=== PATIENT | male | born 1985 | race Caucasian/White ===

== ENCOUNTER 2019-05-18 04:58 | Emergency (ER) | payer SELFPAY ==
[~2019-05-18] VITALS: Ht 185.4 cm; Wt 111.1 kg
[2019-05-18 05:08] VITALS: BP 163/89
[2019-05-18] MEDS ORDERED: IBUPROFEN 600 MG TAB PO ONE (05:15)
--- NOTE | 2019-05-18 05:16 | NUR ---
PATIENT BROUGHT IN BY TWO FEMALE FRIENDS. POSITIONED FOR COMFORT IN BED. PLACED IN GOWN. AAO. VSS.
--- NOTE | 2019-05-18 05:17 | NUR ---
DR ANGEL AT BEDSIDE.
--- NOTE | 2019-05-18 05:35 | NUR ---
PATIENT TAKEN TO CT IN WHEELCHAIR.
--- NOTE | 2019-05-18 06:07 | NUR ---
PATIENT STATES HIS PAIN HAS IMPROVED FROM 7/10 TO 5/10.
[2019-05-18 06:37] VITALS: BP 163/89
--- NOTE | 2019-05-18 06:38 | NUR ---
PATIENT DISCHARGED BY DR. ANGEL. SIGNED DISCHARGE PAPAERWORK AND RECIEVED INSTRUCTION.
== END 2019-05-18 06:37 | disposition home or self-care (01) ==
LOC: MED 04:58
DX: S09.8XXA Other specified injuries of head, initial encounter (principal); Y04.2XXA Assault by strike against or bumped into by another person, initial encounter; Y93.89 Activity, other specified; Y92.29 Other specified public building as the place of occurrence of the external cause; Y99.8 Other external cause status
CPT/HCPCS: 70450; 70486; 99284